=== PATIENT | male | born 1925 | race Caucasian/White ===

== ENCOUNTER 2017-01-11 10:26 | Emergency (ER) | payer MEDICARE, OTHER ==
[~2017-01-11 10:26] MED LIST: ADULT ASPIRIN81 MG PO; AGGRENOX1 CAP PO; AMOXICILLIN500 M; AMOXICILLIN500 M2 PO; ASPIR 8181 M1 PO; ASPIRIN325 MG PO; ASPIRIN81 MG PO; AUGMENTIN 875-1 EAC2 PO; BACTRIM DS TAB1 EAC2 PO; BACTRIM DS1 TAB PO; CARVEDILOL3.125 M1 PO; CARVEDILOL6.25 MG PO; CEFAZOLIN-2 GM/50 ML IV; CENTRUM SILVER1 EAC5 PO; CITRIC ACID; COUMADIN5 M1 PO; CYCLOBENZAPRINE5 M1 PO; DEBROX15 M1; DELTASONE10 MG PO; DOCUSATE CALCI100 MG PO; FAMOTIDINE20 M3 PO; FIBER LAX625 M1 PO; FOLIC ACID PO; FOLIC ACID1 M1 PO; FOLIC ACID1 MG PO; GLUCOSAMINE & C1 CAP PO; GLUCOSAMINE &1 EAC1 PO; GLUCOSAMINE H1500 MG PO; HEPARIN SO5000 UNIT3 SC; JUVEN PACKET1 EAC1 PO; LISINOPRIL2.5 M1 PO; LISINOPRIL2.5 MG PO; MIRALAX17 G2 PO; MOBIC15 M1 PO; MOBIC15 M2 PO; MOBIC15 MG; MOBIC15 MG PO; MOBIC7.5 MG PO; MULTIVITAMINS1 EAC6 PO; NORCO 5-325 TA1 EACH PO; NORCO 5/3251 TAB PO; POTASSIUM CITRATE; PREDNISONE10 MG; RANITIDINE HCL150 M2 PO; SANTYL30 G1 TOP; SILVADENE20 G1 TOP; SILVADENE20 GM TP; TIMOPTIC XE OP; TIMOPTIC10 ML EACH EYE; TIMOPTIC2.5 ML OP; TOPROL XL25 MG PO; TYLENOL325 M2 PO; TYLENOL650 MG PO; UROCIT-K10 ME1 PO; UROCIT-K10 MEQ PO; UROCIT-K15 MEQ PO; VICODIN 5/500 T1 TAB PO; VITAMIN D32000 UNI2 PO; [UNRECOGNIZED DRUG - OTHER]; [UNRECOGNIZED DRUG - OTHER] PO
[2017-01-11] MEDS ORDERED: LEVAQUIN750 M1 PO (11:05)
[2017-01-11] MEDS ORDERED: VIBRAMYCIN100 M1 PO (11:11)
[2017-01-11] MEDS ORDERED: LASIX40 M1 PO (11:25)
[2017-01-11] MEDS ORDERED: TOPROL XL25 M1 PO (11:28)
[2017-01-11 11:58] LABS: BASO % 0.4 % (0-2); EOS % 1.8 % (0-7); EOSINOPHIL ABSOLUTE COUNT 0.2 tho/cmm (0.0-0.7); HCT-HEMATOCRIT 41.1 % (36.0-53.5); HGB-HEMOGLOBIN 13.4 gm/dl (13.5-17.0); IMMATURE GRANULOCYTES ABSOLUTE 0.08 tho/cmm (0-0.03); IMMATURE GRANULOCYTES PERCENT 0.8 % (0-0.3); LYMPH % 7.7 % (20-45); LYMPH ABSOLUTE COUNT 0.8 tho/cmm (0.8-4.5); MCH (MEAN CORPUSCULAR HGB) 28.6 pg (28.0-32.0); MCHC MEAN CORPUSCULAR HGB CONC 32.6 % (32.0-36.0); MCV (MEAN CELL VOLUME) 87.6 fl (82.0-96.0); MEAN PLATELET VOLUME 10.6 cmc (9.4-12.4); MONO % 14.2 % (0-12); MONOCYTE ABSOLUTE COUNT 1.4 tho/cmm (0.0-1.2); NEUTROPHIL ABSOLUTE COUNT 7.3 tho/cmm (1.6-8.0); NEUTROPHIL-AUTOMATED 7.3 tho/cmm (1.6-8.0); NEUTROPHILS % 75.1 % (40-80); PLATELET COUNT 173 tho/cmm (150-450); RED BLOOD COUNT 4.69 mil/cmm (4.40-5.70); RED CELL DISTRIBUTION WIDTH 21.4 % (12.4-16.4); WHITE BLOOD COUNT 9.8 tho/cmm (4.0-10.0)
[2017-01-11 12:05] LABS: ANION GAP 10 mmol/L (0-20); BLOOD UREA NITROGEN 16 mg/dl (6-24); CALCIUM 8.7 mg/dl (8.5-10.5); CARBON DIOXIDE-VENOUS 31 mmol/L (22-32); CHLORIDE 105 mmol/l (96-110); CREATININE 1.23 mg/dl (0.60-1.30); GLUCOSE 78 mg/dL (70-110); POTASSIUM 3.7 mmol/L (3.7-5.1); SODIUM 142 mmol/L (135-145); eGFR VALUE FOR BLACK 60 mL/Min
[2017-01-11] MEDS ORDERED: VITAMIN D32000 UNI3 PO (12:09)
== END 2017-01-11 13:51 ==
LOC: EDMED 10:26
PROVIDERS: Emergency Medicine
DX: E86.0 Dehydration (principal); I48.91 Unspecified atrial fibrillation; I95.9 Hypotension, unspecified; Z89.612 Acquired absence of left leg above knee
CPT/HCPCS: J7030

== ENCOUNTER 2017-07-06 13:20 | Inpatient (IN) | payer MEDICARE, OTHER ==
[~2017-07-06] VITALS: Ht 182.9 cm; Wt 97.3 kg
[~2017-07-06 13:20] MED LIST changes: +LASIX40 M1 PO; +LEVAQUIN750 M1 PO; +TOPROL XL25 M1 PO; +VIBRAMYCIN100 M1 PO; +VITAMIN D32000 UNI3 PO
[2017-07-06 13:45] LABS: BASO % 0.4 % (0-2); EOS % 1.8 % (0-7); EOSINOPHIL ABSOLUTE COUNT 0.2 tho/cmm (0.0-0.7); HCT-HEMATOCRIT 25.9 % (36.0-53.5); HGB-HEMOGLOBIN 8.4 gm/dl (13.5-17.0); IMMATURE GRANULOCYTES ABSOLUTE 0.03 tho/cmm (0-0.03); IMMATURE GRANULOCYTES PERCENT 0.3 % (0-0.3); INR 1.4 INR (0.9-1.1); LYMPH ABSOLUTE COUNT 1.4 tho/cmm (0.8-4.5); MCHC MEAN CORPUSCULAR HGB CONC 32.4 % (32.0-36.0); MCV (MEAN CELL VOLUME) 89.3 fl (82.0-96.0); MEAN PLATELET VOLUME 11.5 cmc (9.4-12.4); MONO % 11.6 % (0-12); MONOCYTE ABSOLUTE COUNT 1.2 tho/cmm (0.0-1.2); NEUTROPHIL ABSOLUTE COUNT 7.5 tho/cmm (1.6-8.0); NEUTROPHIL-AUTOMATED 7.5 tho/cmm (1.6-8.0); NEUTROPHILS % 72.9 % (40-80); PLATELET COUNT 148 tho/cmm (150-450); PROTHROMBIN TIME 16.6 SECONDS (9.0-13.6); RED CELL DISTRIBUTION WIDTH 20.7 % (12.4-16.4); WHITE BLOOD COUNT 10.4 tho/cmm (4.0-10.0)
[2017-07-06] MEDS ORDERED: PLAVIX75 M1 PO (13:48)
[2017-07-06] MEDS ORDERED: LIPITOR20 M1 PO (13:48)
[2017-07-06] MEDS ORDERED: LISINOPRIL2.5 M1 PO (13:48)
[2017-07-06 13:56] LABS: ALB/GLOB RATIO 0.7 (0.8-2.0); ALKALINE PHOSPHATASE 120 U/L (33-138); ALT/SGPT 12 U/L (12-78); ANION GAP 11 mmol/L (0-20); AST/SGOT 18 U/L (10-40); BILIRUBIN,TOTAL 2.2 mg/dl (0.0-1.5); BLOOD UREA NITROGEN 20 mg/dl (6-24); CALCIUM 7.4 mg/dl (8.5-10.5); CARBON DIOXIDE-VENOUS 28 mmol/L (22-32); CHLORIDE 110 mmol/l (96-110); CREATININE 0.87 mg/dl (0.60-1.30); GLUCOSE 113 mg/dL (70-110); POTASSIUM 3.8 mmol/L (3.7-5.1); SODIUM 145 mmol/L (135-145); eGFR VALUE FOR BLACK 89 mL/Min
[2017-07-06 14:07] LABS: ALBUMIN 2.1 g/dl (3.5-5.0)
[2017-07-06] MEDS ORDERED: FUROSEMIDE40 M2 PO (14:08)
[2017-07-06] MEDS ORDERED: MERREM1 GM IV (14:10)
[2017-07-06 19:06] LABS: BASO % 0.2 % (0-2); EOS % 0.5 % (0-7); EOSINOPHIL ABSOLUTE COUNT 0.1 tho/cmm (0.0-0.7); HCT-HEMATOCRIT 27.7 % (36.0-53.5); HGB-HEMOGLOBIN 9.2 gm/dl (13.5-17.0); IMMATURE GRANULOCYTES ABSOLUTE 0.04 tho/cmm (0-0.03); IMMATURE GRANULOCYTES PERCENT 0.3 % (0-0.3); LYMPH % 4.2 % (20-45); LYMPH ABSOLUTE COUNT 0.5 tho/cmm (0.8-4.5); MCH (MEAN CORPUSCULAR HGB) 28.8 pg (28.0-32.0); MCHC MEAN CORPUSCULAR HGB CONC 33.2 % (32.0-36.0); MCV (MEAN CELL VOLUME) 86.8 fl (82.0-96.0); MEAN PLATELET VOLUME 11.4 cmc (9.4-12.4); MONO % 9.6 % (0-12); MONOCYTE ABSOLUTE COUNT 1.2 tho/cmm (0.0-1.2); NEUTROPHIL ABSOLUTE COUNT 10.2 tho/cmm (1.6-8.0); NEUTROPHIL-AUTOMATED 10.2 tho/cmm (1.6-8.0); NEUTROPHILS % 85.2 % (40-80); PLATELET COUNT 129 tho/cmm (150-450); RED BLOOD COUNT 3.19 mil/cmm (4.40-5.70); RED CELL DISTRIBUTION WIDTH 18.4 % (12.4-16.4)
[2017-07-06 19:14] LABS: INR 1.1 INR (0.9-1.1)
[2017-07-06 19:21] LABS: ALB/GLOB RATIO 0.9 (0.8-2.0); ALKALINE PHOSPHATASE 102 U/L (33-138); ALT/SGPT <10 U/L (12-78); ANION GAP 10 mmol/L (0-20); AST/SGOT 18 U/L (10-40); BLOOD UREA NITROGEN 18 mg/dl (6-24); CALCIUM 7.2 mg/dl (8.5-10.5); CARBON DIOXIDE-VENOUS 27 mmol/L (22-32); CHLORIDE 113 mmol/l (96-110); CREATININE 0.68 mg/dl (0.60-1.30); GLUCOSE 125 mg/dL (70-110); POTASSIUM 3.7 mmol/L (3.7-5.1); SODIUM 146 mmol/L (135-145); eGFR VALUE FOR BLACK >90 mL/Min
[2017-07-06 19:28] LABS: BILIRUBIN,TOTAL 3.7 mg/dl (0.0-1.5)
[2017-07-06 23:16] LABS: MAGNESIUM 1.9 mg/dl (1.8-2.6); POTASSIUM 3.7 mmol/L (3.7-5.1)
[2017-07-07 01:24] LABS: HCT-HEMATOCRIT 28.8 % (36.0-53.5); HGB-HEMOGLOBIN 9.8 gm/dl (13.5-17.0); MCV (MEAN CELL VOLUME) 85.7 fl (82.0-96.0); RED CELL DISTRIBUTION WIDTH 18.5 % (12.4-16.4)
[2017-07-07 05:11] LABS: BASO % 0.3 % (0-2); EOS % 0.6 % (0-7); EOSINOPHIL ABSOLUTE COUNT 0.1 tho/cmm (0.0-0.7); HCT-HEMATOCRIT 28.5 % (36.0-53.5); HGB-HEMOGLOBIN 9.5 gm/dl (13.5-17.0); IMMATURE GRANULOCYTES ABSOLUTE 0.05 tho/cmm (0-0.03); IMMATURE GRANULOCYTES PERCENT 0.4 % (0-0.3); LYMPH % 7.7 % (20-45); LYMPH ABSOLUTE COUNT 1.1 tho/cmm (0.8-4.5); MCH (MEAN CORPUSCULAR HGB) 28.7 pg (28.0-32.0); MCHC MEAN CORPUSCULAR HGB CONC 33.3 % (32.0-36.0); MCV (MEAN CELL VOLUME) 86.1 fl (82.0-96.0); MEAN PLATELET VOLUME 10.8 cmc (9.4-12.4); MONOCYTE ABSOLUTE COUNT 1.3 tho/cmm (0.0-1.2); NEUTROPHIL ABSOLUTE COUNT 11.6 tho/cmm (1.6-8.0); NEUTROPHIL-AUTOMATED 11.6 tho/cmm (1.6-8.0); PLATELET COUNT 131 tho/cmm (150-450); RED BLOOD COUNT 3.31 mil/cmm (4.40-5.70); RED CELL DISTRIBUTION WIDTH 18.8 % (12.4-16.4); WHITE BLOOD COUNT 14.1 tho/cmm (4.0-10.0)
[2017-07-07 05:31] LABS: ALB/GLOB RATIO 0.9 (0.8-2.0); ALBUMIN 2.1 g/dl (3.5-5.0); ALKALINE PHOSPHATASE 110 U/L (33-138); ALT/SGPT 11 U/L (12-78); ANION GAP 11 mmol/L (0-20); AST/SGOT 15 U/L (10-40); BILIRUBIN,TOTAL 3.7 mg/dl (0.0-1.5); BLOOD UREA NITROGEN 17 mg/dl (6-24); CALCIUM 7.1 mg/dl (8.5-10.5); CARBON DIOXIDE-VENOUS 27 mmol/L (22-32); CHLORIDE 115 mmol/l (96-110); FERRITIN 57 ng/ml (22-388); GLUCOSE 127 mg/dL (70-110); SODIUM 149 mmol/L (135-145); eGFR VALUE FOR BLACK >90 mL/Min
[2017-07-07 05:56] LABS: IRON 126 ug/dl (49-181); IRON BINDING CAPACITY 216 ug/dl (250-450)
[2017-07-07 12:57] LABS: HCT-HEMATOCRIT 28.9 % (36.0-53.5); HGB-HEMOGLOBIN 9.3 gm/dl (13.5-17.0); MCV (MEAN CELL VOLUME) 88.7 fl (82.0-96.0); RED CELL DISTRIBUTION WIDTH 19.3 % (12.4-16.4)
[2017-07-07 13:18] LABS: ANION GAP 9 mmol/L (0-20); BLOOD UREA NITROGEN 14 mg/dl (6-24); CALCIUM 7.3 mg/dl (8.5-10.5); CARBON DIOXIDE-VENOUS 28 mmol/L (22-32); CHLORIDE 115 mmol/l (96-110); CREATININE 0.68 mg/dl (0.60-1.30); GLUCOSE 125 mg/dL (70-110); SODIUM 148 mmol/L (135-145); eGFR VALUE FOR BLACK >90 mL/Min
[2017-07-07 16:21] LABS: ANION GAP 7 mmol/L (0-20); BLOOD UREA NITROGEN 14 mg/dl (6-24); CALCIUM 7.2 mg/dl (8.5-10.5); CARBON DIOXIDE-VENOUS 28 mmol/L (22-32); CHLORIDE 114 mmol/l (96-110); GLUCOSE 168 mg/dL (70-110); POTASSIUM 3.9 mmol/L (3.7-5.1); SODIUM 145 mmol/L (135-145); eGFR VALUE FOR BLACK >90 mL/Min
[2017-07-07 19:15] LABS: HCT-HEMATOCRIT 25.4 % (36.0-53.5); HGB-HEMOGLOBIN 8.5 gm/dl (13.5-17.0); MCV (MEAN CELL VOLUME) 87.3 fl (82.0-96.0); RED CELL DISTRIBUTION WIDTH 19.4 % (12.4-16.4)
[2017-07-08 01:48] LABS: HCT-HEMATOCRIT 24.5 % (36.0-53.5); HGB-HEMOGLOBIN 8.1 gm/dl (13.5-17.0); MCV (MEAN CELL VOLUME) 87.5 fl (82.0-96.0); RED CELL DISTRIBUTION WIDTH 19.4 % (12.4-16.4)
[2017-07-08 05:53] LABS: BASO % 0.3 % (0-2); EOS % 2.4 % (0-7); EOSINOPHIL ABSOLUTE COUNT 0.2 tho/cmm (0.0-0.7); HGB-HEMOGLOBIN 7.9 gm/dl (13.5-17.0); IMMATURE GRANULOCYTES ABSOLUTE 0.04 tho/cmm (0-0.03); IMMATURE GRANULOCYTES PERCENT 0.4 % (0-0.3); LYMPH % 9.4 % (20-45); LYMPH ABSOLUTE COUNT 0.9 tho/cmm (0.8-4.5); MCH (MEAN CORPUSCULAR HGB) 29.2 pg (28.0-32.0); MCHC MEAN CORPUSCULAR HGB CONC 33.1 % (32.0-36.0); MCV (MEAN CELL VOLUME) 88.2 fl (82.0-96.0); MEAN PLATELET VOLUME 11.3 cmc (9.4-12.4); MONO % 12.4 % (0-12); MONOCYTE ABSOLUTE COUNT 1.1 tho/cmm (0.0-1.2); NEUTROPHIL ABSOLUTE COUNT 6.8 tho/cmm (1.6-8.0); NEUTROPHIL-AUTOMATED 6.8 tho/cmm (1.6-8.0); NEUTROPHILS % 75.1 % (40-80); PLATELET COUNT 102 tho/cmm (150-450); RED BLOOD COUNT 2.71 mil/cmm (4.40-5.70); RED CELL DISTRIBUTION WIDTH 19.6 % (12.4-16.4); WHITE BLOOD COUNT 9.1 tho/cmm (4.0-10.0)
[2017-07-08 05:56] LABS: HCT-HEMATOCRIT 23.9 % (36.0-53.5)
[2017-07-08 06:09] LABS: ALB/GLOB RATIO 0.9 (0.8-2.0); ALBUMIN 2.2 g/dl (3.5-5.0); ALKALINE PHOSPHATASE 96 U/L (33-138); ALT/SGPT <10 U/L (12-78); ANION GAP 10 mmol/L (0-20); AST/SGOT 13 U/L (10-40); BILIRUBIN,DIRECT 0.5 mg/dl (0.0-0.3); BILIRUBIN,INDIRECT 1.9 mg/dL (0.0-1.0); BILIRUBIN,TOTAL 2.4 mg/dl (0.0-1.5); BLOOD UREA NITROGEN 11 mg/dl (6-24); CALCIUM 7.3 mg/dl (8.5-10.5); CARBON DIOXIDE-VENOUS 27 mmol/L (22-32); CHLORIDE 117 mmol/l (96-110); CREATININE 0.68 mg/dl (0.60-1.30); GLUCOSE 137 mg/dL (70-110); PHOSPHOROUS 1.7 mg/dl (2.5-4.9); POTASSIUM 3.5 mmol/L (3.7-5.1); SODIUM 150 mmol/L (135-145); eGFR VALUE FOR BLACK >90 mL/Min
[2017-07-08 12:08] LABS: HGB-HEMOGLOBIN 7.8 gm/dl (13.5-17.0); MCV (MEAN CELL VOLUME) 88.8 fl (82.0-96.0); RED CELL DISTRIBUTION WIDTH 19.6 % (12.4-16.4)
[2017-07-08 12:19] LABS: ANION GAP 11 mmol/L (0-20); BLOOD UREA NITROGEN 10 mg/dl (6-24); CALCIUM 7.2 mg/dl (8.5-10.5); CARBON DIOXIDE-VENOUS 26 mmol/L (22-32); CHLORIDE 116 mmol/l (96-110); CREATININE 0.62 mg/dl (0.60-1.30); GLUCOSE 123 mg/dL (70-110); HCT-HEMATOCRIT 23.7 % (36.0-53.5); POTASSIUM 3.6 mmol/L (3.7-5.1); SODIUM 149 mmol/L (135-145); eGFR VALUE FOR BLACK >90 mL/Min
[2017-07-08 15:01] LABS: ANION GAP 9 mmol/L (0-20); BLOOD UREA NITROGEN 9 mg/dl (6-24); CALCIUM 7.3 mg/dl (8.5-10.5); CARBON DIOXIDE-VENOUS 26 mmol/L (22-32); CHLORIDE 114 mmol/l (96-110); GLUCOSE 146 mg/dL (70-110); POTASSIUM 3.5 mmol/L (3.7-5.1); SODIUM 145 mmol/L (135-145); eGFR VALUE FOR BLACK >90 mL/Min
[2017-07-08 18:12] LABS: HGB-HEMOGLOBIN 7.9 gm/dl (13.5-17.0); MCV (MEAN CELL VOLUME) 88.6 fl (82.0-96.0); RED CELL DISTRIBUTION WIDTH 19.6 % (12.4-16.4)
[2017-07-08 20:31] LABS: ANION GAP 7 mmol/L (0-20); BLOOD UREA NITROGEN 9 mg/dl (6-24); CALCIUM 7.4 mg/dl (8.5-10.5); CARBON DIOXIDE-VENOUS 27 mmol/L (22-32); CHLORIDE 112 mmol/l (96-110); CREATININE 0.69 mg/dl (0.60-1.30); GLUCOSE 108 mg/dL (70-110); POTASSIUM 3.5 mmol/L (3.7-5.1); SODIUM 142 mmol/L (135-145); eGFR VALUE FOR BLACK >90 mL/Min
[2017-07-09 05:44] LABS: BASO % 0.3 % (0-2); EOS % 3.8 % (0-7); EOSINOPHIL ABSOLUTE COUNT 0.3 tho/cmm (0.0-0.7); HGB-HEMOGLOBIN 7.6 gm/dl (13.5-17.0); IMMATURE GRANULOCYTES ABSOLUTE 0.03 tho/cmm (0-0.03); IMMATURE GRANULOCYTES PERCENT 0.4 % (0-0.3); LYMPH % 10.2 % (20-45); LYMPH ABSOLUTE COUNT 0.8 tho/cmm (0.8-4.5); MCH (MEAN CORPUSCULAR HGB) 29.1 pg (28.0-32.0); MCV (MEAN CELL VOLUME) 89.3 fl (82.0-96.0); MEAN PLATELET VOLUME 11.6 cmc (9.4-12.4); MONOCYTE ABSOLUTE COUNT 1.1 tho/cmm (0.0-1.2); NEUTROPHIL ABSOLUTE COUNT 5.5 tho/cmm (1.6-8.0); NEUTROPHIL-AUTOMATED 5.5 tho/cmm (1.6-8.0); NEUTROPHILS % 71.3 % (40-80); PLATELET COUNT 98 tho/cmm (150-450); RED BLOOD COUNT 2.61 mil/cmm (4.40-5.70); RED CELL DISTRIBUTION WIDTH 19.5 % (12.4-16.4); WHITE BLOOD COUNT 7.7 tho/cmm (4.0-10.0)
[2017-07-09 05:49] LABS: ALB/GLOB RATIO 1.1 (0.8-2.0); ALBUMIN 1.8 g/dl (3.5-5.0); ALKALINE PHOSPHATASE 69 U/L (33-138); AST/SGOT 10 U/L (10-40); BILIRUBIN,TOTAL 1.3 mg/dl (0.0-1.5); BLOOD UREA NITROGEN 6 mg/dl (6-24); CARBON DIOXIDE-VENOUS 21 mmol/L (22-32); CHLORIDE 123 mmol/l (96-110); CREATININE 0.39 mg/dl (0.60-1.30); GLUCOSE 77 mg/dL (70-110); MAGNESIUM 1.4 mg/dl (1.8-2.6); PHOSPHOROUS 1.4 mg/dl (2.5-4.9); SODIUM 149 mmol/L (135-145); eGFR VALUE FOR BLACK >90 mL/Min
[2017-07-09 05:50] LABS: HCT-HEMATOCRIT 23.3 % (36.0-53.5); MCHC MEAN CORPUSCULAR HGB CONC 32.6 % (32.0-36.0)
[2017-07-09 06:05] LABS: ALT/SGPT <10 U/L (12-78); ANION GAP 8 mmol/L (0-20)
[2017-07-09 06:06] LABS: POTASSIUM 2.6 mmol/L (3.7-5.1)
[2017-07-09 06:07] LABS: CALCIUM 5.5 mg/dl (8.5-10.5)
[2017-07-09 06:49] LABS: ALB/GLOB RATIO 1.1 (0.8-2.0); ALBUMIN 2.5 g/dl (3.5-5.0); ALKALINE PHOSPHATASE 94 U/L (33-138); ALT/SGPT <10 U/L (12-78); AST/SGOT 13 U/L (10-40); BILIRUBIN,TOTAL 1.8 mg/dl (0.0-1.5); BLOOD UREA NITROGEN 8 mg/dl (6-24); CARBON DIOXIDE-VENOUS 26 mmol/L (22-32); CHLORIDE 113 mmol/l (96-110); GLUCOSE 101 mg/dL (70-110); SODIUM 144 mmol/L (135-145)
[2017-07-09 06:51] LABS: ANION GAP 9 mmol/L (0-20); CALCIUM 7.3 mg/dl (8.5-10.5); CREATININE 0.69 mg/dl (0.60-1.30); POTASSIUM 3.5 mmol/L (3.7-5.1); eGFR VALUE FOR BLACK >90 mL/Min
[2017-07-09 12:59] LABS: ANION GAP 12 mmol/L (0-20); BLOOD UREA NITROGEN 8 mg/dl (6-24); CALCIUM 6.9 mg/dl (8.5-10.5); CARBON DIOXIDE-VENOUS 24 mmol/L (22-32); CHLORIDE 116 mmol/l (96-110); CREATININE 0.52 mg/dl (0.60-1.30); GLUCOSE 93 mg/dL (70-110); POTASSIUM 3.5 mmol/L (3.7-5.1); SODIUM 148 mmol/L (135-145); eGFR VALUE FOR BLACK >90 mL/Min
[2017-07-09 19:35] LABS: ANION GAP 7 mmol/L (0-20); BLOOD UREA NITROGEN 8 mg/dl (6-24); CALCIUM 7.5 mg/dl (8.5-10.5); CARBON DIOXIDE-VENOUS 28 mmol/L (22-32); CHLORIDE 111 mmol/l (96-110); CREATININE 0.72 mg/dl (0.60-1.30); GLUCOSE 106 mg/dL (70-110); POTASSIUM 4.2 mmol/L (3.7-5.1); SODIUM 142 mmol/L (135-145); eGFR VALUE FOR BLACK >90 mL/Min
[2017-07-10 01:22] LABS: ANION GAP 7 mmol/L (0-20); BLOOD UREA NITROGEN 7 mg/dl (6-24); CALCIUM 7.3 mg/dl (8.5-10.5); CARBON DIOXIDE-VENOUS 29 mmol/L (22-32); CHLORIDE 109 mmol/l (96-110); CREATININE 0.72 mg/dl (0.60-1.30); GLUCOSE 96 mg/dL (70-110); POTASSIUM 3.9 mmol/L (3.7-5.1); SODIUM 141 mmol/L (135-145); eGFR VALUE FOR BLACK >90 mL/Min
[2017-07-10 06:02] LABS: BASO % 0.2 % (0-2); EOS % 1.3 % (0-7); EOSINOPHIL ABSOLUTE COUNT 0.1 tho/cmm (0.0-0.7); HCT-HEMATOCRIT 24.7 % (36.0-53.5); HGB-HEMOGLOBIN 8.1 gm/dl (13.5-17.0); IMMATURE GRANULOCYTES ABSOLUTE 0.03 tho/cmm (0-0.03); IMMATURE GRANULOCYTES PERCENT 0.4 % (0-0.3); LYMPH % 6.3 % (20-45); LYMPH ABSOLUTE COUNT 0.5 tho/cmm (0.8-4.5); MCH (MEAN CORPUSCULAR HGB) 29.3 pg (28.0-32.0); MCHC MEAN CORPUSCULAR HGB CONC 32.8 % (32.0-36.0); MCV (MEAN CELL VOLUME) 89.5 fl (82.0-96.0); MEAN PLATELET VOLUME 11.3 cmc (9.4-12.4); MONO % 14.5 % (0-12); MONOCYTE ABSOLUTE COUNT 1.2 tho/cmm (0.0-1.2); NEUTROPHIL ABSOLUTE COUNT 6.4 tho/cmm (1.6-8.0); NEUTROPHIL-AUTOMATED 6.4 tho/cmm (1.6-8.0); NEUTROPHILS % 77.3 % (40-80); PLATELET COUNT 105 tho/cmm (150-450); RED BLOOD COUNT 2.76 mil/cmm (4.40-5.70); RED CELL DISTRIBUTION WIDTH 19.1 % (12.4-16.4); WHITE BLOOD COUNT 8.3 tho/cmm (4.0-10.0)
[2017-07-10 06:16] LABS: ANION GAP 6 mmol/L (0-20); BLOOD UREA NITROGEN 7 mg/dl (6-24); CALCIUM 7.4 mg/dl (8.5-10.5); CARBON DIOXIDE-VENOUS 29 mmol/L (22-32); CHLORIDE 110 mmol/l (96-110); CREATININE 0.69 mg/dl (0.60-1.30); GLUCOSE 85 mg/dL (70-110); MAGNESIUM 2.1 mg/dl (1.8-2.6); POTASSIUM 3.8 mmol/L (3.7-5.1); SODIUM 141 mmol/L (135-145); eGFR VALUE FOR BLACK >90 mL/Min
[2017-07-10 12:30] LABS: ANION GAP 9 mmol/L (0-20); BLOOD UREA NITROGEN 8 mg/dl (6-24); CALCIUM 7.6 mg/dl (8.5-10.5); CARBON DIOXIDE-VENOUS 30 mmol/L (22-32); CHLORIDE 109 mmol/l (96-110); CREATININE 0.71 mg/dl (0.60-1.30); GLUCOSE 91 mg/dL (70-110); POTASSIUM 4.1 mmol/L (3.7-5.1); SODIUM 144 mmol/L (135-145); eGFR VALUE FOR BLACK >90 mL/Min
[2017-07-10 14:56] LABS: ANION GAP 4 mmol/L (0-20); BLOOD UREA NITROGEN 8 mg/dl (6-24); CALCIUM 7.7 mg/dl (8.5-10.5); CARBON DIOXIDE-VENOUS 32 mmol/L (22-32); CHLORIDE 109 mmol/l (96-110); CREATININE 0.77 mg/dl (0.60-1.30); GLUCOSE 111 mg/dL (70-110); SODIUM 141 mmol/L (135-145); eGFR VALUE FOR BLACK >90 mL/Min
[2017-07-10 20:13] LABS: ANION GAP 10 mmol/L (0-20); BLOOD UREA NITROGEN 9 mg/dl (6-24); CALCIUM 7.6 mg/dl (8.5-10.5); CARBON DIOXIDE-VENOUS 29 mmol/L (22-32); CHLORIDE 110 mmol/l (96-110); GLUCOSE 128 mg/dL (70-110); POTASSIUM 4.2 mmol/L (3.7-5.1); SODIUM 145 mmol/L (135-145); eGFR VALUE FOR BLACK >90 mL/Min
[2017-07-11 06:11] LABS: ANION GAP 8 mmol/L (0-20); BLOOD UREA NITROGEN 9 mg/dl (6-24); CALCIUM 7.6 mg/dl (8.5-10.5); CARBON DIOXIDE-VENOUS 30 mmol/L (22-32); CHLORIDE 108 mmol/l (96-110); CREATININE 0.69 mg/dl (0.60-1.30); GLUCOSE 90 mg/dL (70-110); MAGNESIUM 2.1 mg/dl (1.8-2.6); POTASSIUM 3.8 mmol/L (3.7-5.1); SODIUM 142 mmol/L (135-145); eGFR VALUE FOR BLACK >90 mL/Min
[2017-07-11 06:18] LABS: BASO % 0.3 % (0-2); EOSINOPHIL ABSOLUTE COUNT 0.2 tho/cmm (0.0-0.7); HCT-HEMATOCRIT 24.4 % (36.0-53.5); HGB-HEMOGLOBIN 7.8 gm/dl (13.5-17.0); IMMATURE GRANULOCYTES ABSOLUTE 0.02 tho/cmm (0-0.03); IMMATURE GRANULOCYTES PERCENT 0.3 % (0-0.3); LYMPH % 9.9 % (20-45); LYMPH ABSOLUTE COUNT 0.7 tho/cmm (0.8-4.5); MCV (MEAN CELL VOLUME) 90.7 fl (82.0-96.0); MEAN PLATELET VOLUME 10.4 cmc (9.4-12.4); MONO % 13.6 % (0-12); NEUTROPHIL ABSOLUTE COUNT 5.5 tho/cmm (1.6-8.0); NEUTROPHIL-AUTOMATED 5.5 tho/cmm (1.6-8.0); NEUTROPHILS % 73.9 % (40-80); PLATELET COUNT 121 tho/cmm (150-450); RED BLOOD COUNT 2.69 mil/cmm (4.40-5.70); RED CELL DISTRIBUTION WIDTH 18.9 % (12.4-16.4); WHITE BLOOD COUNT 7.5 tho/cmm (4.0-10.0)
[2017-07-11 12:25] LABS: HCT-HEMATOCRIT 26.7 % (36.0-53.5); HGB-HEMOGLOBIN 8.6 gm/dl (13.5-17.0); MCV (MEAN CELL VOLUME) 90.8 fl (82.0-96.0); RED CELL DISTRIBUTION WIDTH 18.6 % (12.4-16.4)
[2017-07-11 12:38] LABS: ANION GAP 8 mmol/L (0-20); BLOOD UREA NITROGEN 10 mg/dl (6-24); CALCIUM 7.9 mg/dl (8.5-10.5); CARBON DIOXIDE-VENOUS 30 mmol/L (22-32); CHLORIDE 108 mmol/l (96-110); CREATININE 0.71 mg/dl (0.60-1.30); GLUCOSE 115 mg/dL (70-110); POTASSIUM 3.8 mmol/L (3.7-5.1); SODIUM 142 mmol/L (135-145); eGFR VALUE FOR BLACK >90 mL/Min
[2017-07-11 14:21] LABS: BODY FLUID APPEARANCE HAZY (CLEAR); BODY FLUID COLOR YELLOW (COLORLESS); BODY FLUID TYPE PLEURAL; BODY FLUID VOLUME 2000 ml
[2017-07-11 14:22] LABS: BODY FLUID RBC COUNT <1000 cmm (0); BODY FLUID WBC COUNT 98 cmm
[2017-07-11 14:50] LABS: BODY FLUID LYMPHOCYTES 35 %; BODY FLUID MACROPHAGES 14 %; BODY FLUID NEUTROPHILS 51 %
[2017-07-11 20:00] LABS: HCT-HEMATOCRIT 29.7 % (36.0-53.5); HGB-HEMOGLOBIN 9.6 gm/dl (13.5-17.0); MCV (MEAN CELL VOLUME) 89.7 fl (82.0-96.0); RED CELL DISTRIBUTION WIDTH 18.3 % (12.4-16.4)
[2017-07-11 20:10] LABS: ANION GAP 10 mmol/L (0-20); BLOOD UREA NITROGEN 10 mg/dl (6-24); CALCIUM 7.8 mg/dl (8.5-10.5); CARBON DIOXIDE-VENOUS 29 mmol/L (22-32); CHLORIDE 106 mmol/l (96-110); CREATININE 0.79 mg/dl (0.60-1.30); GLUCOSE 146 mg/dL (70-110); POTASSIUM 3.8 mmol/L (3.7-5.1); SODIUM 141 mmol/L (135-145); eGFR VALUE FOR BLACK >90 mL/Min
[2017-07-12 01:41] LABS: HCT-HEMATOCRIT 28.5 % (36.0-53.5); HGB-HEMOGLOBIN 9.2 gm/dl (13.5-17.0); MCV (MEAN CELL VOLUME) 89.1 fl (82.0-96.0); RED CELL DISTRIBUTION WIDTH 18.4 % (12.4-16.4)
[2017-07-12 01:48] LABS: ANION GAP 11 mmol/L (0-20); BLOOD UREA NITROGEN 10 mg/dl (6-24); CALCIUM 8.1 mg/dl (8.5-10.5); CARBON DIOXIDE-VENOUS 31 mmol/L (22-32); CHLORIDE 106 mmol/l (96-110); GLUCOSE 120 mg/dL (70-110); POTASSIUM 3.9 mmol/L (3.7-5.1); SODIUM 144 mmol/L (135-145); eGFR VALUE FOR BLACK >90 mL/Min
[2017-07-12 06:11] LABS: BASO % 0.1 % (0-2); EOS % 1.5 % (0-7); EOSINOPHIL ABSOLUTE COUNT 0.1 tho/cmm (0.0-0.7); HGB-HEMOGLOBIN 9.4 gm/dl (13.5-17.0); IMMATURE GRANULOCYTES ABSOLUTE 0.03 tho/cmm (0-0.03); IMMATURE GRANULOCYTES PERCENT 0.3 % (0-0.3); LYMPH % 6.3 % (20-45); LYMPH ABSOLUTE COUNT 0.6 tho/cmm (0.8-4.5); MCH (MEAN CORPUSCULAR HGB) 28.9 pg (28.0-32.0); MCHC MEAN CORPUSCULAR HGB CONC 32.4 % (32.0-36.0); MCV (MEAN CELL VOLUME) 89.2 fl (82.0-96.0); MEAN PLATELET VOLUME 10.7 cmc (9.4-12.4); MONO % 17.8 % (0-12); MONOCYTE ABSOLUTE COUNT 1.7 tho/cmm (0.0-1.2); NEUTROPHIL ABSOLUTE COUNT 6.9 tho/cmm (1.6-8.0); NEUTROPHIL-AUTOMATED 6.9 tho/cmm (1.6-8.0); PLATELET COUNT 151 tho/cmm (150-450); RED BLOOD COUNT 3.25 mil/cmm (4.40-5.70); RED CELL DISTRIBUTION WIDTH 18.3 % (12.4-16.4); WHITE BLOOD COUNT 9.4 tho/cmm (4.0-10.0)
[2017-07-12 06:16] LABS: ANION GAP 10 mmol/L (0-20); BLOOD UREA NITROGEN 9 mg/dl (6-24); CALCIUM 8.2 mg/dl (8.5-10.5); CARBON DIOXIDE-VENOUS 28 mmol/L (22-32); CHLORIDE 108 mmol/l (96-110); GLUCOSE 108 mg/dL (70-110); PHOSPHOROUS 2.1 mg/dl (2.5-4.9); POTASSIUM 3.9 mmol/L (3.7-5.1); SODIUM 142 mmol/L (135-145); eGFR VALUE FOR BLACK >90 mL/Min
[2017-07-12 12:27] LABS: HGB-HEMOGLOBIN 9.7 gm/dl (13.5-17.0); RED CELL DISTRIBUTION WIDTH 18.3 % (12.4-16.4)
[2017-07-12 12:32] LABS: ANION GAP 9 mmol/L (0-20); BLOOD UREA NITROGEN 10 mg/dl (6-24); CALCIUM 8.1 mg/dl (8.5-10.5); CARBON DIOXIDE-VENOUS 30 mmol/L (22-32); CHLORIDE 105 mmol/l (96-110); CREATININE 0.69 mg/dl (0.60-1.30); GLUCOSE 121 mg/dL (70-110); POTASSIUM 3.6 mmol/L (3.7-5.1); SODIUM 140 mmol/L (135-145); eGFR VALUE FOR BLACK >90 mL/Min
[2017-07-12 18:31] LABS: BODY FLUID TYPE PLEURAL
[2017-07-12 18:33] LABS: BODY FLUID APPEARANCE HAZY (CLEAR); BODY FLUID COLOR YELLOW (COLORLESS); BODY FLUID TYPE LEFT PLEURAL; BODY FLUID VOLUME 1400 ml
[2017-07-12 18:35] LABS: BODY FLUID RBC COUNT <1000 cmm (0); BODY FLUID WBC COUNT 207 cmm
[2017-07-12 18:54] LABS: BODY FLUID LYMPHOCYTES 32 %; BODY FLUID MACROPHAGES 51 %; BODY FLUID NEUTROPHILS 17 %
[2017-07-12 19:03] LABS: ANION GAP 7 mmol/L (0-20); BLOOD UREA NITROGEN 11 mg/dl (6-24); CALCIUM 7.7 mg/dl (8.5-10.5); CARBON DIOXIDE-VENOUS 32 mmol/L (22-32); CHLORIDE 105 mmol/l (96-110); CREATININE 0.68 mg/dl (0.60-1.30); GLUCOSE 108 mg/dL (70-110); POTASSIUM 3.6 mmol/L (3.7-5.1); SODIUM 140 mmol/L (135-145); eGFR VALUE FOR BLACK >90 mL/Min
[2017-07-13 05:49] LABS: HCT-HEMATOCRIT 29.9 % (36.0-53.5); HGB-HEMOGLOBIN 9.7 gm/dl (13.5-17.0); MCV (MEAN CELL VOLUME) 88.7 fl (82.0-96.0)
[2017-07-13 06:00] LABS: ANION GAP 6 mmol/L (0-20); BLOOD UREA NITROGEN 11 mg/dl (6-24); CALCIUM 7.6 mg/dl (8.5-10.5); CARBON DIOXIDE-VENOUS 32 mmol/L (22-32); CHLORIDE 107 mmol/l (96-110); GLUCOSE 94 mg/dL (70-110); POTASSIUM 3.9 mmol/L (3.7-5.1); SODIUM 141 mmol/L (135-145); eGFR VALUE FOR BLACK >90 mL/Min
[2017-07-13] MEDS ORDERED: COMBIVENT RESPIM4 G1 INH (14:56)
[2017-07-13] MEDS ORDERED: IPRAT-ALBUT 0.5-3 ML INH ×2 (14:57→15:48)
[2017-07-13] MEDS ORDERED: MIDODRINE HCL10 M1 PO (15:19)
[2017-07-13] MEDS ORDERED: PLAVIX75 M1 PO (15:20)
[2017-07-13] MEDS ORDERED: ASPIR 8181 M1 PO (15:20)
[2017-07-13] MEDS ORDERED: LIPITOR20 M1 PO (15:20)
[2017-07-13] MEDS ORDERED: ACETAMINOPHEN325 M2 PO (15:21)
[2017-07-13] MEDS ORDERED: MIRALAX17 G2 PO (15:22)
[2017-07-13] MEDS ORDERED: MILK OF MAGNESIA PO (15:22)
[2017-07-13] MEDS ORDERED: PROTONIX40 M2 PO (15:24)
[2017-07-13] MEDS ORDERED: MYRBETRIQ25 M1 PO (15:24)
[2017-07-13] MEDS ORDERED: METAMUCIL PACK3.4 G1 PO (15:24)
[2017-07-13] MEDS ORDERED: LORAZEPAM I2 MG/1 ML SL (15:29)
[2017-07-13] MEDS ORDERED: MORPHINE S10 MG/5 M1 SL (15:29)
== END 2017-07-13 16:15 | disposition hospice, inpatient (51) | DRG 377 ==
LOC: EDMED → EDBD 13:20 → EDMED 13:20 → PCUB 16:33 → EMR2 16:33 → CCU 16:33 → ORW 17:20 → CCU 18:35 → PCUB 07-10 17:25 → CCU 07-11 09:40
PROVIDERS: Emergency Medicine; Family Medicine; Internal Medicine; Internal Medicine Cardiovascular Disease; Internal Medicine Pulmonary Disease; Nurse Practitioner Family; Specialist; ADMIT Hospitalist
PROC: 0DJD8ZZ Inspection of Lower Intestinal Tract, Via Natural or Artificial Opening Endoscopic (ICD-10-PCS; principal; 2017-07-06)
PROC: 0DJ08ZZ Inspection of Upper Intestinal Tract, Via Natural or Artificial Opening Endoscopic (ICD-10-PCS; 2017-07-06)
PROC: 0DJD8ZZ Inspection of Lower Intestinal Tract, Via Natural or Artificial Opening Endoscopic (ICD-10-PCS; 2017-07-08)
PROC: 05HC33Z Insertion of Infusion Device into Left Basilic Vein, Percutaneous Approach (ICD-10-PCS; 2017-07-10)
PROC: 0W9B3ZZ Drainage of Left Pleural Cavity, Percutaneous Approach (ICD-10-PCS; 2017-07-12)
DX: K92.2 Gastrointestinal hemorrhage, unspecified (principal); J96.00 Acute respiratory failure, unspecified whether with hypoxia or hypercapnia; J90 Pleural effusion, not elsewhere classified; I96 Gangrene, not elsewhere classified; I50.43 Acute on chronic combined systolic (congestive) and diastolic (congestive) heart failure; E87.0 Hyperosmolality and hypernatremia; N18.3 Chronic kidney disease, stage 3 (moderate); I48.0 Paroxysmal atrial fibrillation; L97.519 Non-pressure chronic ulcer of other part of right foot with unspecified severity; K62.6 Ulcer of anus and rectum; D62 Acute posthemorrhagic anemia; K57.90 Diverticulosis of intestine, part unspecified, without perforation or abscess without bleeding; K64.9 Unspecified hemorrhoids; K63.5 Polyp of colon; I12.9 Hypertensive chronic kidney disease with stage 1 through stage 4 chronic kidney disease, or unspecified chronic kidney disease; I25.10 Atherosclerotic heart disease of native coronary artery without angina pectoris; I73.9 Peripheral vascular disease, unspecified; Z79.02 Long term (current) use of antithrombotics/antiplatelets; Z79.82 Long term (current) use of aspirin; Z95.0 Presence of cardiac pacemaker
CPT/HCPCS: C1751; C9113; C9132; J1250; J1265; J1940; J2185; J2405; J3475; J3480; J7030; J7040; J7050; P9016; P9031; P9033; P9045; P9047